=== PATIENT | female | born 1960 | race Two or more races ===

== ENCOUNTER 2025-03-20 07:32 | Outpatient (CLI) | payer OTHER | END 2025-03-20 07:37 | disposition home or self-care (01) | LOC: MAMO-SONO 07:32 | PROVIDERS: ATTEND Internal Medicine Cardiovascular Disease | DX: J44.9 Chronic obstructive pulmonary disease, unspecified (principal); E03.9 Hypothyroidism, unspecified; N60.11 Diffuse cystic mastopathy of right breast; N60.12 Diffuse cystic mastopathy of left breast; Z12.31 Encounter for screening mammogram for malignant neoplasm of breast ==

== ENCOUNTER 2025-03-20 11:10 | Outpatient (CLI) | payer OTHER ==
[2025-03-20 12:03] LABS: BASO % 1.1 % (0.1-1.2); EOS # 0.21 (0.04-0.54); EOS % 3.8 % (0.7-7.0); LYMPH # 2.15 (1.18-3.74); LYMPH % 38.5 % (19.3-53.1); MEAN PLATELET VOLUME 8.90 fl (9.4-12.4); MONO # 0.41 (0.24-0.82); MONO % 7.3 % (4.7-12.5); NEUT # 2.74 (1.56-6.13); NEUT % 49.1 % (34.0-71.1); RED CELL DISTRIBUTION WIDTH 12.6 % (11.6-14.4)
[2025-03-20 12:58] LABS: COVID-19 AG NEGATIVE (NEGATIVE); MYCOPLASMA PNEUMONIAE IGM NON REACTIVE (NO REACTIVE)
== END 2025-03-20 11:18 | disposition home or self-care (01) ==
LOC: LAB 11:10
PROVIDERS: ATTEND Internal Medicine Cardiovascular Disease
DX: J11.1 Influenza due to unidentified influenza virus with other respiratory manifestations (principal); A49.3 Mycoplasma infection, unspecified site; Z20.822 Contact with and (suspected) exposure to COVID-19

== ENCOUNTER 2025-04-02 06:46 | Outpatient (CLI) | payer OTHER ==
[2025-04-02 07:44] LABS: BASO % 0.8 % (0.1-1.2); EOS # 0.20 (0.04-0.54); EOS % 4.1 % (0.7-7.0); LYMPH # 1.95 (1.18-3.74); LYMPH % 40.4 % (19.3-53.1); MEAN PLATELET VOLUME 8.70 fl (9.4-12.4); MONO # 0.33 (0.24-0.82); MONO % 6.8 % (4.7-12.5); NEUT # 2.30 (1.56-6.13); NEUT % 47.7 % (34.0-71.1); RED CELL DISTRIBUTION WIDTH 12.6 % (11.6-14.4)
[2025-04-02 08:28] LABS: URINE APPEARANCE Clear; URINE BILIRRUBIN Negative (NEGATIVE); URINE BLOOD Negative; URINE COLOR Yellow; URINE GLUCOSE Negative (NEGATIVE); URINE KETONE Negative (NEGATIVE); URINE LEUKOCYTE Small; URINE NITRATE Negative; URINE PROTEIN Negative (NEGATIVE); URINE UROBILINOGEN 0.2 E.U./dl
[2025-04-02 08:33] LABS: URINE BACTERIA 22.7 uL (0.0-1933); URINE EPITHELIAL CELLS 6.6 uL (0.0-38.8); URINE RBC 3.9 uL (0.0-20.8); URINE WBC 10.1 uL (0.0-23.2)
[2025-04-02 08:52] LABS: URINE CAST 0.58 uL (0.0-1.40)
[2025-04-02 09:08] LABS: ALT/SGPT 26.0 U/L (12-78); AST/SGOT 14.0 U/L (15-37); BILIRUBIN TOTAL 0.69 mg/dL (0.3-1.2); BUN CREA RATIO 18.0 (7.0-25.0); CHOL HDL RATIO 4.5 (0-5.0); CREATININE SERUM 0.72 mg/dL (0.55-1.02); GFR 81.29; GLOBULINA 3.3 G/DL (2.4-3.5); GLUCOSE FASTING 103.0 mg/dL (65-100); HDL 47.0 mg/dl (40-60); LDL 128.0 mg/dl (0-130); OSMOLALITY SERUM 282.0 MOSM/KG (275-295); T4 TOTAL 10.7 UG/DL (4.8-13.9); TSH 2.86 uIU/mL (0.358-3.74); VLDL 34.0 (0-39)
[2025-04-02 10:31] LABS: ob NEGATIVE (NEGATIVE)
[2025-04-02 13:48] LABS: T3 TOTAL 0.992 ng/ml (0.846-2.02); VITAMIN D3 25 HYDROXY 47.91 ng/ml (30-120)
== END 2025-04-02 06:53 | disposition home or self-care (01) ==
LOC: LAB 06:46
PROVIDERS: ATTEND Internal Medicine Cardiovascular Disease
DX: E03.9 Hypothyroidism, unspecified (principal); E78.2 Mixed hyperlipidemia; I10 Essential (primary) hypertension; D64.0 Hereditary sideroblastic anemia; Z12.11 Encounter for screening for malignant neoplasm of colon; E55.9 Vitamin D deficiency, unspecified; M81.0 Age-related osteoporosis without current pathological fracture; R73.03 Prediabetes